=== PATIENT | male | born 1930 | race Caucasian/White ===

== ENCOUNTER 2016-10-30 20:10 | Emergency (ER) | payer MEDICARE, OTHER ==
--- NOTE | ~2016-10-30 | CT16 ---
[facility] A Service of [facility] RADIOLOGY TEXT RESULTS PATIENT: KUMAR GRACE JR LOCATION: [facility] : [birth year] UNIT #: [id number] AGE: [address]: Marcelo Salter MD SEX: M ORDER DR: [id number] [facility] [address] [place], [place] [address] [id number] E MR#: [id number] Acc #: [id number] NAME: KUMAR GRACE JR : 1930 SEX: M STUDY DATE/TIME: 10/31/2016 1:27 UNIT: [facility] ROOM: STUDY DESCRIPTION: CT Angio Chest for PE Attending Physician: Marcelo Salter Ordering Physician: Des Salter M.D. Primary Care Physician: Cleve Leavitt M.D. MEDICAL IMAGING REPORT This report is preliminary unless electronic signature is present EXAM CT chest with PE protocol INDICATION Shortness of air for a week with elevated D-dimer. COMPARISON 01/04/2014 TECHNIQUE The patient was given 100 mL Isovue-370 and spiral imaging was performed through the chest. 3-D reconstructions of the pulmonary arteries were generated. This CT exam was performed with one or more of the following radiation dose reduction techniques: automatic exposure control, adjustment of mA and/or kV according to patient size, and iterative reconstruction. FINDINGS There is optimal opacification of the pulmonary arteries and there is no CT evidence of pulmonary embolus. The aorta is normal in size and no dissection. The lungs are clear except for calcified granuloma in the right lung. There is decreased volume in the right lung as compared with the left probably due to previous surgery with partial lung resection. There is minimal right upper lobe medial atelectasis abutting the mediastinum. The visualized portion of the upper abdomen show a small aortic aneurysm measuring 2.6 cm in diameter. There is also a moderate hiatal hernia. IMPRESSION 1. There is a moderate hiatal hernia and there is a 2.5 cm abdominal aortic aneurysm visible in the mediastinum. [facility] A Service of [facility] RADIOLOGY TEXT RESULTS PATIENT: KUMAR GRACE JR LOCATION: [facility] : [birth year] UNIT #: [id number] AGE: [address]: Marcelo Salter MD SEX: M ORDER DR: 2. There is some atelectatic lung abutting the right side of the mediastinum but it does not appear large enough in volume to represent the entire right upper lobe. There is some volume loss on the right side with a slight shift of the mediastinum toward the right. This could be due to postoperative changes of if the patient has not had any surgery then it could be chronic atelectasis of a portion of the right upper lobe. There are calcified lymph nodes in the hilum and mediastinum. 3. No infiltrates are visible. Dictated by... Emeka Ann M.D. THIS IS AN ELECTRONICALLY VERIFIED REPORT Emeka Ann M.D. at 10/31/2016 5:48 AM CIRA/amanda TD: 10/31/2016 04:11 JOB #: [id number] MEDICAL IMAGING REPORT Page 1 of 1 COPY
--- NOTE | ~2016-10-30 | CR72 ---
[facility] A Service of [facility] RADIOLOGY TEXT RESULTS PATIENT: KUMAR GRACE JR LOCATION: [facility] : [birth year] UNIT #: [id number] AGE: [address]: Marcelo Salter MD SEX: M ORDER DR: [id number] [facility] [address] [place], [place] [address] [id number] E MR#: [id number] Acc #: [id number] NAME: KUMAR GRACE JR : 1930 SEX: M STUDY DATE/TIME: 10/30/2016 21:43 UNIT: [facility] ROOM: STUDY DESCRIPTION: CR Chest Single View Portable Attending Physician: eDs Salter M.D. Ordering Physician: Joey Singh M.D. Primary Care Physician: Cleve Leavitt M.D. MEDICAL IMAGING REPORT This report is preliminary unless electronic signature is present EXAM Single view of the chest dated 10/30/2016 at 2143 hours. COMPARISON Chest 2 views dated 10/30/2016 at 1727 hours. HISTORY Cough, shortness of air for a week, worse today. 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 FINDINGS Frontal view of the chest was obtained. Postoperative changes are redemonstrated along the right side of the superior mediastinum with a smaller right lung. Patient is known to have right lung lobectomy and appearance is in keeping with it. Left lung is well aerated and is larger when compared to the right. Calcified mediastinal, right hilar lymph nodes and lung nodules are noted bilaterally, suggestive of old granulomatous disease. Stable. There is no significant interval worsening. Heart is of normal size. IMPRESSION 1. Postoperative changes are noted in the right lung relating to the known lobectomy, with a smaller right lung when compared to the left. 2. 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 3. No superimposed acute cardiopulmonary disease. Dictated by... Kenneth Alas M.D. THIS IS AN ELECTRONICALLY VERIFIED REPORT Kenneth Alas M.D. at 10/31/2016 11:36 AM [facility]. [facility] A Service of [facility] RADIOLOGY TEXT RESULTS PATIENT: KUMAR GRACE JR LOCATION: [facility] #: [id number] : [birth year] UNIT #: [id number] AGE: [address]: Marcelo Salter MD SEX: M ORDER DR: RACHEL/rhett TD: 10/31/2016 01:43 JOB #: [id number] MEDICAL IMAGING REPORT Page 1 of 1 COPY
--- NOTE | ~2016-10-30 | EKG ---
PATIENT: KUMAR GRACE UNIT #: [id number] Ventricular Rate: 77 BPM Atrial Rate: 77 BPM P-R Interval: 130 ms QRS Duration: 124 ms Q-T Interval: 388 ms QTC Calculation(Bezet): 439 ms P Franklin: 74 degrees Calculated R Franklin: 93 degrees Calculated T Franklin: 76 degrees Diagnosis Line: Sinus rhythm with Premature supraventricular Diagnosis Line: complexes Diagnosis Line: Right bundle branch block Diagnosis Line: Abnormal ECG Diagnosis Line: Diagnosis Line: Confirmed by GEOVANNI PEREYRA MD ([id number]) on Diagnosis Line: 11/01/2016 10:32:42 AM INTERPRETING MD: HAFSA HASTINGS
[~2016-10-30 20:10] MED LIST: ASTEPRO205.5 MCG/; BENADRYL PO; FLONASE 0.05% N16 GM; PANTOPRAZOLE SO40 MG PO; PROTONIX PO; ZOCOR PO; [UNRECOGNIZED DRUG - OTHER]
[2016-10-30 21:49] LABS: BASOPHIL% 0.1 % (0-2.5); EOSINOPHIL% 0.1 % (0.0-7.0); HEMATOCRIT 42.7 % (38.0-50.0); LYMPHOCYTE# 0.9 X10e3 (1.0-3.5); LYMPHOCYTE% 5.4 % (17.0-45.0); MEAN CELL VOLUME 86.1 FL (83-96); MEAN CORPUSCULAR HEMOGLOBIN 28.2 PG (28-34); MEAN CORPUSCULAR HGB CONC 32.7 g/dL (30-36); MEAN PLATELET VOLUME 8.4 FL (6.5-11.5); MONOCYTE# 1.2 X10e3 (0-1.0); MONOCYTE% 6.7 % (3.0-12.0); NEUTROPHIL# 15.5 X10e3 (1.5-7.1); NEUTROPHIL% 87.7 % (40-75); PLATELET COUNT 253 X10e3 (140-420); RED BLOOD COUNT 4.96 X10e (3.90-5.60); RED CELL DISTRIBUTION WIDTH 14.3 % (11.0-15.5); WHITE BLOOD COUNT 17.7 X10e3 (4.0-10.5)
[2016-10-30 21:51] LABS: DIFF IND YES
[2016-10-30 22:15] LABS: ALBUMIN SERUM 4.1 g/dL (3.5-5.0); BILIRUBIN, DIRECT 0.1 mg/dL (0.0-0.2); BILIRUBIN,INDIRECT 0.7 mg/dL (0.0-0.9); BILIRUBIN,TOTAL 0.8 mg/dL (0.2-2.0); BUN/CREATININE RATIO 21.42; CALCIUM SERUM 8.5 mg/dL (8.4-10.2); CREATININE SERUM 1.4 mg/dL (0.6-1.4); GLOM FILT RATE Estimated 44.9 mL/min (>60); POTASSIUM 3.7 mmol/L (3.5-5.1); PROTEIN TOTAL SERUM 7.1 g/dL (6.0-8.3)
[2016-10-30 22:44] LABS: PLATELET ESTIMATE NORMAL (NORMAL)
[2016-10-30 22:45] LABS: RBC NORMAL YES
[2016-10-30 22:52] LABS: POC - CKMB 1.7 ng/mL (0.0-7.9); POC - TROPONIN <0.05 ng/mL (<=0.05)
== END 2016-10-31 03:56 | disposition home or self-care (01) ==
LOC: CED 20:10
PROVIDERS: Emergency Medicine
DX: R06.02 Shortness of breath (principal); R05 Cough; R78.5 Finding of other psychotropic drug in blood; Z87.891 Personal history of nicotine dependence; Z88.1 Allergy status to other antibiotic agents; Z79.899 Other long term (current) drug therapy
CPT/HCPCS: 36415; 71010; 71275; 80048; 80076; 82553; 83880; 84484; 85025; 85379; 93005; 96360; 96361; 99285; Q9967